=== PATIENT | female | born 1990 | race Caucasian/White ===

== ENCOUNTER → 2018-01-04 | Outpatient (CLI) | payer OTHER ==
[~2018-01-04] MED LIST: BCP; DESO.25TC TOP
[2018-01-05 01:30] LABS: Source VAG/CERVIX
== END | disposition home or self-care (01) ==
LOC: LAB SHORT 09:34 → LAB 09:34
PROVIDERS: Obstetrics & Gynecology
DX: Z01.419 Encounter for gynecological examination (general) (routine) without abnormal findings (principal)
CPT/HCPCS: G0123